=== PATIENT | male | born 1975 | race Caucasian/White ===

== ENCOUNTER 2018-03-06 14:27 | Inpatient (IN) | payer OTHER ==
[2018-03-06 14:58] VITALS: BMI 26.4
--- NOTE | 2018-03-06 16:30 | HP ---
COWS - Scale Resting Pulse: 0= [place] 80 or Below Sweatin= Chills/Flushing Restless Observation: 1= Difficult to Sit Still Pupil Size: 0= Normal to Room Light Bone or Joint Aches: 0= None Runny Nose/ Eye Tearin= Runny Nose/Eyes GI Upset > 30mins: 0= None Tremor Observation: 2= Slight Tremor Visible Yawning Observation: 1= 1-2x During Session Anxiety or Irritability: 2=Irritable/Anxious Goose Flesh Skin: 3=Piloerection COWS Score: 12 Admission ROS S - HPI Chief Complaint: "I need help." Patient is here to Detox from Heroin. Allergies/Adverse Reactions: Allergies Allergy/AdvReac Type Severity Reaction Status Date / Time No Known Drug Allergies Allergy Verified 03/06/18 15:20 History of Present Illness: Patient is a 42 YO male here to Detox from Heroin. This is patient's first Detox admission at [facility]. Patient had a Detox admission in 2017 at another location in [facility] (patient unable to recall name or exact location of Detox facility). Longest period of non-drug use: approx. 2 years (patient unable to recall approx. start time - end time). NOTE: PATIENT REPORTS HISTORY OF DVT TO LEFT LEG WITH PULMONARY EMBOLISM IN 2007 (TREATED IN ER AT TIME). PATIENT HAD A SECOND DVT IN LEFT LEG IN 2008 ( ALSO TREATED IN ER, FOLLOWED BY 3 MONTHS OF COUMADIN, 5 MG DAILY (GRADUALLY TAPERED DOWN). IN 2009, MEDICAL PROVIDER PLACED TWO FILTERS IN LEFT LEG (NO PO MEDICATION PRESCRIBED FOR FOLLOW-UP). THREE DAYS AGO, PATIENT WENT TO [facility] ([place], [place] FOR TREATMENT OF SUBSTANCE USE. HOWEVER, MEDICAL PROVIDER AT [facility] DIAGNOSED ANOTHER DVT IN LEFT AND DISCHARGED PATIENT WITH PRESCRIPTION FOR COUMADIN. 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 PATIENT ALSO UNABLE TO RECALL NAME OF HIS PHARMACY. THUS, DOSE OF COUMADIN UNABLE TO BE VERIFIED THAT WAY. PATIENT DENIES CHEST PAIN, SOB , AND DIZZINESS. WILL START PATIENT WITH COUMADIN AT 5 MG PO DAILY @ 0600. DOPPLER STUDIES TO BILATERAL LOWER LEGS TO BE DONE TOMORROW AM. BASELINE PT/INR ORDERED FOR TOMORROW AM. SUBSEQUENT PT/INR'S TO BE DETERMINED WHEN THOSE RESULTS ARE AVAILABLE. Exam Limitations: No Limitations - Ebola screening Have you traveled outside of the country in the last 21 days: No Have you had contact with anyone from an Ebola affected area: No Have you been sick,other than usual withdrawal symptoms: No Do you have a fever: No - Review of Systems Constitutional: Chills, Diaphoresis, Fever, Loss of Appetite, Malaise, Night Sweats, Changes in sleep, Unintentional Wgt. Loss (Lost approx. 35 lbs. over last 3 months.) EENT: reports: Hearing Loss (Left Ear.) Respiratory: reports: No Symptoms reported Cardiac: reports: No Symptoms Reported GI: reports: No Symptoms Reported : reports: Frequency, Urgency Musculoskeletal: reports: No Symptoms Reported Integumentary: reports: Other (Two small wounds noted on Left Forearm. No bleeding or unusual discharge noted at either site. Patiernt reports that both sites, feel itchy, but he denies pain at either site. Patient uncertain how wounds occurred.) Neuro: reports: Tremors Endocrine: reports: No Symptoms Reported Hematology: reports: Blood Clots (History of DVT in Left leg (X 2) w/ Pulmonary embolism: 2007, 2008. Filter placed in Left Leg in 2007.) Psychiatric: reports: Judgement Intact, Mood/Affect Appropiate, Anxious, Depressed, Disorientated (To Current Day / Date.) Other Systems: Reviewed and Negative Patient History - Patient Medical History Hx Anemia: No Hx Asthma: Yes (Uses MDI PRN.) Hx Chronic Obstructive Pulmonary Disease (COPD): No Hx Cancer: No Hx Cardiac Disorders: No Hx Congestive Heart Failure: No Hx Hypertension: No Hx Hypercholesterolemia: No Hx Pacemaker: No HX Cerebrovascular Accident: No Hx Seizures: No Hx Dementia: No Hx Diabetes: No Hx Gastrointestinal Disorders: No Hx Liver Disease: No Hx Genitourinary Disorders: No Hx Sexually Transmitted Disorders: No Hx Renal Disease (ESRD): No Hx Thyroid Disease: No Hx Human Immunodeficiency Virus (HIV): Yes (Diagnosed 2004, No medication.) Hx Hepatitis C: Yes (Diagnosed 2004., No treatment yet.) Hx Depression: Yes (Took meds. in past, none recently, unable to recall names.) Hx Suicide Attempt: No (PATIENT DENIES CURRENT SI / HI.) Hx Bipolar Disorder: Yes (Took meds. in past, none recently, unable to recall names.) Hx Schizophrenia: No Other Medical History: DVT (X 2; 2008, 2008), PULMONARY EMBOLISM (2008). - Patient Surgical History Past Surgical History: Yes Hx Neurologic Surgery: No Hx Cataract Extraction: No Hx Cardiac Surgery: No Hx Lung Surgery: No Hx Breast Surgery: No Hx Breast Biopsy: No Hx Abdominal Surgery: No Hx Appendectomy: No Hx Cholecystectomy: No Hx Genitourinary Surgery: No Hx Section: No Hx Orthopedic Surgery: No Other Surgical History: HX of DVT with filter placement in left groin Area in 2009. Anesthesia Reaction: No - PPD History Previous Implant?: No Documented Results: Negative w/o proof Implanted On Prior R Admission?: No PPD to be Administered?: Yes - Reproductive History Patient is a Female of Child Bearing Age (11 -55 yrs old): No (PATIENT IS MALE.) - Smoking Cessation Smoking history: Current every day smoker Have you smoked in the past 12 months: Yes Aproximately how many cigarettes per day: 12 Cigars Per Day: 0 Hx Chewing Tobacco Use: No Initiated information on smoking cessation: Yes 'Breaking Loose' booklet given: 03/06/18 (GIVEN TO PATIENT.) - Substance & Tx. History Hx Alcohol Use: No Hx Substance Use: Yes Substance Use Type: Cocaine, Heroin Hx Substance Use Treatment: Yes (Detox admission in 2017 ([facility] to recall name of location; Not Completed)) - Substances Abused Heroin Route: Injection Frequency: Daily Amount used: 10bags Age of first use: 29 Date of Last Use: 03/06/18 Crack Route: Smoking Frequency: 1-3 times last 30 days Amount used: 1 Age of first use: 42 Date of Last Use: 03/03/18 Family Disease History - Family Disease History Family History: Denies Admission Physical Exam BHS - Vital Signs Vital Signs: Vital Signs - 24 hr 03/06/18 14:48 Temperature 98.1 F Pulse Rate 77 Respiratory 20 Rate Blood Pressure 103/60 - Physical General Appearance: Yes: No Apparent Distress, Nourished, Appropriately Dressed , Tremorous, Anxious HEENTM: Yes: Hearing grossly Normal, Normocephalic, Normal Voice, FANTASMA, Pharynx Normal Respiratory: Yes: Chest Non-Tender, Lungs Clear, No Respiratory Distress, No Accessory Muscle Use Neck: Yes: No masses,lesions,Nodules, Supple, Trachea in good position Breast: Yes: Breast Exam Deferred Cardiology: Yes: Regular Rhythm, Regular Rate, S1, S2 Abdominal: Yes: Normal Bowel Sounds, Non Tender, Flat, Soft Genitourinary: Yes: Frequency, Uregency Back: Yes: Normal Inspection Musculoskeletal: Yes: full range of Motion, Gait Steady Extremities: Yes: Normal Capillary Refill, Normal Range of Motion, Non-Tender, Tremors Neurological: Yes: Alert, Normal Mood/Affect, Normal Response, Disoriented (To Current Day / Date.) Integumentary: Yes: Normal Color, Dry, Warm, Track Ward (Noted on bilateral forearms in bilateral lower legs. Bruising noted in bilateral lower legs, slightly below knees. No bleeding or unusuasl discharge noted at affected sites. ), Other (Two small wounds noted on Left Forearm. No bleeding or unusual discharge noted at either site. Patiernt reports that both sites, feel itchy, but he denies pain at either site. Patient uncertain how wounds occurred.) Lymphatic: Yes: Within Normal Limits - Diagnostic (1) Opioid dependence with withdrawal Current Visit: Yes Status: Acute (2) Cocaine dependence, uncomplicated Current Visit: Yes Status: Acute (3) Nicotine dependence Current Visit: Yes Status: Chronic Qualifiers: Nicotine product type: cigarettes Substance use status: uncomplicated Qualified Code(s): F17.210 - Nicotine dependence, cigarettes, uncomplicated (4) History of DVT (deep vein thrombosis) Current Visit: Yes Status: Chronic Comment: X 2 (2007, 2008). (5) History of depression Current Visit: Yes Status: Suspected (6) History of bipolar disorder Current Visit: Yes Status: Suspected (7) Asthma Current Visit: Yes Status: Chronic Qualifiers: Asthma severity: mild Asthma persistence: intermittent Asthma complication type: uncomplicated Qualified Code(s): J45.20 - Mild intermittent asthma, uncomplicated (8) Hepatitis C Current Visit: Yes Status: Acute Qualifiers: Viral hepatitis chronicity: chronic Hepatic coma status: without hepatic coma Qualified Code(s): B18.2 - Chronic viral hepatitis C (9) HIV (human immunodeficiency virus infection) Current Visit: Yes Status: Chronic (10) History of embolic filter insertion Current Visit: Yes Status: Chronic Comment: 2009. Cleared for Admission [facility] - Detox or Rehab [facility] Level of Care: Medically Managed Detox Regimen/Protocol: Methadone [facility] Breath Alcohol Content Breath Alcohol Content: 0 Urine Drug Screen - Results Drug Screen Negative: No Urine Drug Screen Results: SARA-Cocaine, OPI-Opiates
[2018-03-06] MEDS ORDERED: MENTHOL/PHENOL 1 EACH UD MM PRN (17:32)
[2018-03-06] MEDS ORDERED: MAGNESIUM CITRATE 300 ML BOTTLE PO PRN (17:32)
[2018-03-06] MEDS ORDERED: IBUPROFEN 400 MG TABLET (FP) PO PRN (17:32)
[2018-03-06] MEDS ORDERED: ACETAMINOPHEN 325 MG TABLET (FP) PO PRN (17:32)
[2018-03-06] MEDS ORDERED: MAG HYDROX/AL HYDROX/SIMETH 30 ML UNIT-DOSE CUP PO PRN (17:32)
[2018-03-06] MEDS ORDERED: LOPERAMIDE HCL 2 MG CAPSULE PO PRN (17:32)
[2018-03-06] MEDS ORDERED: MAGNESIUM HYDROX 2400MG/30ML ORAL SUSPENSION 30 ML CUP PO PRN (17:32)
[2018-03-06] MEDS ORDERED: P-EPHED 60MG/TRIPROLIDI 2.5MG TABLET PO PRN (17:32)
[2018-03-06] MEDS ORDERED: guaiFENesin/D-METHORPHAN HB 10 ML UNIT-DOSE CUPS PO PRN (17:32)
[2018-03-06] MEDS ORDERED: ALBUTEROL SO4 8 GM HFA INHALER IH PRN (17:35)
[2018-03-06] MEDS ORDERED: METHADONE HCL 10 MG TABLET (FOR DETOX USE ONLY) PO ONE ×2 (18:15→23:00)
[2018-03-06] MEDS: diazePAM 5 MG TABLET PO PRN (19:37)
[2018-03-06] MEDS: WARFARIN NA 5 MG TABLET (UD) PO SCH (19:37)
[2018-03-06] MEDS: NICOTINE 21 MG/24 HOURS TOPICAL PATCH TD SCH (19:37)
[2018-03-06] MEDS: BACITRACIN 0.9 GM PACKET TP SCH (22:20)
[2018-03-06] MEDS: THIAMINE HCL 100 MG TABLET (FP) PO SCH (22:20)
[2018-03-07 00:02] LABS: URINE APPEARANCE SLCLOUDY; URINE BILIRUBIN NEGATIVE (<2.0 mg/dL); URINE COLOR YELLOW; URINE GLUCOSE (UA) NEGATIVE (NEGATIVE); URINE KETONE NEGATIVE (NEGATIVE); URINE LEUK ESTERASE NEGATIVE (NEGATIVE); URINE NITRITE NEGATIVE (NEGATIVE); URINE PROTEIN NEGATIVE (NEGATIVE); URINE UROBILINOGEN NEGATIVE mg/dL (0.2-1.0)
--- NOTE | 2018-03-07 08:55 | CONSULT ---
[facility] Psychiatric Consult - Data Date of interview: 03/07/18 Admission source: [facility] Identifying data: Patient is a 42 year old male, , father of one, unemployed, homeless, and supported by food stamps. This is patient's first psychiatric hospitalization. Patient admitted to for opioid and cocaine dependence. Substance Abuse History: - Smoking Cessation. Smoking history: Current every day smoker. Have you smoked in the past 12 months: Yes. Aproximately how many cigarettes per day: 12. Cigars Per Day: 0. Hx Chewing Tobacco Use: No. Initiated information on smoking cessation: Yes. 'Breaking Loose' booklet given : 03/06/18 (GIVEN TO PATIENT.). - Substance & Tx. History. Hx Alcohol Use: No. Hx Substance Use: Yes. Substance Use Type: Cocaine, Heroin. Hx Substance Use Treatment: Yes (Detox admission in 2017 ([facility] to recall name of location ; Not Completed)). - Substances Abused. Heroin. Route: Injection. Frequency: Daily. Amount used: 10bags. Age of first use: 29. Date of Last Use : 03/06/18. Crack. Route: Smoking. Frequency: 1-3 times last 30 days. Amount used: 1. Age of first use: 42. Date of Last Use: 03/03/18 Medical History: Asthma, Hep C, HIV, DVT (X 2; 2007, 2008), PULMONARY EMBOLISM ( 2007) Psychiatric History: Pt. denies h/o psychiatric hospitalization and suicide attempt. Outpatient psychiatric services was provided last year in [place]. Pt. unable to recall medications he was prescribed. Pt. unable to provide a cohesive psychiatric history. Physical/Sexual Abuse/Trauma History: denies. Mental Status Exam - Mental Status Exam Alert and Oriented to: Time, Place, Person Cognitive Function: Good Patient Appearance: Well Groomed Mood: Withdrawn Affect: Mood Congruent Patient Behavior: Fatigued, Guarded Speech Pattern: Appropriate Voice Loudness: Moderately Soft/Quiet Thought Process: Goal Oriented Hallucinations: Denies Suicidal Ideation: Denies Homicidal Ideation: Denies Insight/Judgement: Poor Sleep: Fair Appetite: Fair Muscle strength/Tone: Normal Gait/Station: Other (Did not observe patient's gait.) Psychiatric Findings - Problem List ([place] 1, 2,3) (1) Substance induced mood disorder Current Visit: Yes Status: Acute (2) Cocaine dependence, uncomplicated Current Visit: Yes Status: Acute (3) Opioid dependence with withdrawal Current Visit: Yes Status: Acute (4) Nicotine dependence Current Visit: Yes Status: Chronic Qualifiers: Nicotine product type: cigarettes Substance use status: uncomplicated Qualified Code(s): F17.210 - Nicotine dependence, cigarettes, uncomplicated - Initial Treatment Plan Initial Treatment Plan: Psychoeducation provided. Detoxification in progress. Observation.
[2018-03-07] MEDS ORDERED: METHADONE HCL 10 MG TABLET (FOR DETOX USE ONLY) PO ONE (10:00)
[2018-03-07 10:12] LABS: HEMATOCRIT 37.4 % (35.4-49); HEMOGLOBIN 12.1 GM/dL (11.7-16.9); MCH 27.2 pg (25.7-33.7); MCHC 32.4 g/dl (32.0-35.9); MEAN CELL VOLUME 83.9 fl (80-96); MEAN PLT VOLUME 10.7 fl (7.5-11.1); PLATELET COUNT 172 K/MM3 (134-434); RBC 4.45 M/mm3 (4.00-5.60); WHITE BLOOD COUNT 6.9 K/mm3 (4.0-10.0)
[2018-03-07] MEDS: PRENATAL VITAMINS W/ FOLIC ACID TABLET (FP) PO SCH (10:36)
[2018-03-07] MEDS: diazePAM 5 MG TABLET PO PRN ×3 (10:36→22:24)
[2018-03-07] MEDS: BACITRACIN 0.9 GM PACKET TP SCH ×2 (10:36→22:24)
[2018-03-07 10:38] LABS: PROTHROMBIN TIME (PATIENT) 11.3 SEC (9.7-13.0)
[2018-03-07] MEDS: NICOTINE 21 MG/24 HOURS TOPICAL PATCH TD SCH (10:38)
[2018-03-07] MEDS: NICOTINE POLACRILEX 2 MG GUM BC PRN (10:39)
--- NOTE | 2018-03-07 11:56 | EKG ---
Test Reason : Blood Pressure : / mmHG Vent. Rate : 075 BPM Atrial Rate : 075 BPM P-R Int : 140 ms QRS Dur : 076 ms QT Int : 364 ms P-R-T Axes : 069 029 027 degrees QTc Int : 406 ms NORMAL SINUS RHYTHM NORMAL ECG NO PREVIOUS ECGS AVAILABLE Confirmed by PATRICIO STEPHEN MD ([id number]) on 03/07/2018 11:56:13 AM Referred By: Confirmed By:PATRICIO STEPHEN MD
[2018-03-07 12:23] LABS: CHLORIDE 110 mmol/L (98-107); POTASSIUM 4.2 mmol/L (3.5-5.1); SGOT/AST 40 U/L (15-37); SGPT/ALT 58 U/L (12-78); SODIUM 143 mmol/L (136-145)
[2018-03-07 12:32] LABS: ALBUMIN 2.8 g/dl (3.4-5.0); ALK PHOS 95 U/L (45-117); ANION GAP 7 MMOL/L (8-16); BILIRUBIN,TOTAL 0.6 mg/dL (0.2-1.0); BLOOD UREA NITROGEN 16 mg/dL (7-18); CO2 26 mmol/L (21-32); CREATININE 0.6 mg/dL (0.7-1.3); GLUCOSE,RANDOM 84 mg/dL (74-106)
--- NOTE | 2018-03-07 16:32 | PN ---
BHS COWS - Scale Resting Pulse: 0= [place] 80 or Below Sweatin= Chills/Flushing Restless Observation: 1= Difficult to Sit Still Pupil Size: 0= Normal to Room Light Bone or Joint Aches: 0= None Runny Nose/ Eye Tearin= Nasal Congestion GI Upset > 30mins: 2= Nausea/Diarrhea Tremor Observation of Outstretched Hands: 2= Slight Tremor Visible Yawning Observation: 1= 1-2x During Session Anxiety or Irritability: 2=Irritable/Anxious Goose Flesh Skin: 3=Piloerection COWS Score: 13 BHS Progress Note (SOAP) Subjective: Tremors, Nasal Congestion, Tremors, Poor Appetite, Fatigue, Nausea. Objective: PATIENT A & O X 2 (UNCERTAIN ABOUT CURRENT DAY / DATE). PATIENT OBSERVED AMBULATING ON UNIT. NO ACUTE DISTRESS. PATIENT REPORTS DISCOMFORT IN LEFT LOWER LEG ONLY WHEN STANDING WITH FULL WEIGHT ON IT. 03/07/18 16:31 Vital Signs Temperature 98.2 F 03/07/18 13:57 Pulse Rate 80 03/07/18 13:57 Respiratory Rate 18 03/07/18 13:57 Blood Pressure 110/65 03/07/18 13:57 O2 Sat by Pulse Oximetry (%) Laboratory Tests 03/06/18 03/07/18 03/07/18 Unknown 07:40 07:40 WBC 6.9 RBC 4.45 Hgb 12.1 Hct 37.4 MCV 83.9 MCH 27.2 MCHC 32.4 RDW 14.0 Plt Count 172 MPV 10.7 PT with INR INR Sodium 143 Potassium 4.2 Chloride 110 H Carbon Dioxide 26 Anion Gap 7 L BUN 16 Creatinine 0.6 L Creat Clearance w eGFR > 60 Random Glucose 84 Calcium 8.0 L Total Bilirubin 0.6 AST 40 H ALT 58 Alkaline Phosphatase 95 Total Protein 7.0 Albumin 2.8 L Urine Color Yellow Urine Appearance Slcloudy Urine pH 5.0 Ur Specific [place] 1.026 Urine Protein Negative Urine Glucose (UA) Negative Urine Ketones Negative Urine Blood Negative Urine Nitrite Negative Urine Bilirubin Negative Urine Urobilinogen Negative Ur Leukocyte Esterase Negative RPR Titer 03/07/18 03/07/18 07:40 07:40 WBC RBC Hgb Hct MCV MCH MCHC RDW Plt Count MPV PT with INR 11.30 INR 1.00 Sodium Potassium Chloride Carbon Dioxide Anion Gap BUN Creatinine Creat Clearance w eGFR Random Glucose Calcium Total Bilirubin AST ALT Alkaline Phosphatase Total Protein Albumin Urine Color Urine Appearance Urine pH Ur Specific [place] Urine Protein Urine Glucose (UA) Urine Ketones Urine Blood Urine Nitrite Urine Bilirubin Urine Urobilinogen Ur Leukocyte Esterase RPR Titer Nonreactive LABS NOTED. RESULTS OF DUPLEX ULSTRASOUND OF BILATERAL LOWER EXTREMITIES NOTED. PATIENT PREVIOUSLY DIAGNOSED WITH DVT OF LEFT LOWER EXTREMITY APPROX. 4 DAYS AGO AT [facility] ([place], [place] PATIENT REPORTS THAT HE WAS PRESCRIBED COUMADIN (UNCERTAIN ABOUT DOSE). 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 03/07/18 16:34 Assessment: 03/07/18 16:31 WITHDRAWAL SYMPTOMS. Plan: CONTINUE DETOX. ENSURE FOR CALORIC SUPPLEMENTATION. REPEAT PT/INR TOMORROW AM TO SEE IF ANY EFFECT OF COUMADIN. SUBSEQUENT DOSAGE MODIFICATION OF COUMADIN TO BE DETERMINED AFTER THOSE RESULTS ARE AVAILABLE.
[2018-03-07] MEDS: WARFARIN NA 5 MG TABLET (UD) PO SCH (17:40)
[2018-03-07] MEDS: THIAMINE HCL 100 MG TABLET (FP) PO SCH (22:24)
[2018-03-08] MEDS ORDERED: METHADONE HCL 5 MG TABLET (FOR DETOX USE ONLY) PO ONE (10:00)
[2018-03-08] MEDS: PRENATAL VITAMINS W/ FOLIC ACID TABLET (FP) PO SCH (10:24)
[2018-03-08] MEDS: diazePAM 5 MG TABLET PO PRN ×3 (10:24→22:21)
[2018-03-08] MEDS: BACITRACIN 0.9 GM PACKET TP SCH ×2 (10:24→22:20)
[2018-03-08] MEDS: NICOTINE 21 MG/24 HOURS TOPICAL PATCH TD SCH (10:27)
[2018-03-08 11:21] LABS: INR 0.98 (0.83-1.09); PROTHROMBIN TIME (PATIENT) 11.1 SEC (9.7-13.0)
[2018-03-08] MEDS: WARFARIN NA 5 MG TABLET (UD) PO SCH (17:39)
[2018-03-08] MEDS: THIAMINE HCL 100 MG TABLET (FP) PO SCH (22:21)
[2018-03-09] MEDS ORDERED: METHADONE HCL 5 MG TABLET (FOR DETOX USE ONLY) PO ONE (10:00)
[2018-03-09] MEDS: BACITRACIN 0.9 GM PACKET TP SCH ×2 (10:07→22:23)
[2018-03-09] MEDS: diazePAM 5 MG TABLET PO PRN (10:07)
[2018-03-09] MEDS: PRENATAL VITAMINS W/ FOLIC ACID TABLET (FP) PO SCH (10:07)
[2018-03-09] MEDS: NICOTINE 21 MG/24 HOURS TOPICAL PATCH TD SCH (10:07)
[2018-03-09] MEDS: WARFARIN NA 5 MG TABLET (UD) PO SCH (17:33)
[2018-03-09] MEDS: hydrOXYzine PAMOATE 25 MG CAPSULE (FP) PO PRN ×2 (17:36→22:23)
--- NOTE | 2018-03-09 17:38 | PN ---
BHS COWS - Scale Resting Pulse: 1= [place] 81-100 Sweatin=Flushed/Facial Moisture Restless Observation: 1= Difficult to Sit Still Pupil Size: 1= Pupils >than Normal Bone or Joint Aches: 2= Severe Diffuse Aches Runny Nose/ Eye Tearin= Runny Nose/Eyes GI Upset > 30mins: 1= Stomach Cramp Tremor Observation of Outstretched Hands: 1= Tremor [place], Not Seen Yawning Observation: 1= 1-2x During Session Anxiety or Irritability: 2=Irritable/Anxious Goose Flesh Skin: 3=Piloerection COWS Score: 17 BHS Progress Note (SOAP) Subjective: pt states he is not feeling good- that he feels like he is in withdrawal Vital Signs - 24 hr 03/08/18 03/09/18 03/09/18 21:05 00:30 03:30 Temperature 97 F L Pulse Rate 81 Respiratory 18 18 18 Rate Blood Pressure 121/60 03/09/18 03/09/18 03/09/18 06:20 06:30 11:14 Temperature 97.8 F 97.6 F Pulse Rate 68 83 Respiratory 18 18 20 Rate Blood Pressure 111/69 112/72 03/09/18 14:45 Temperature 97.4 F L Pulse Rate 83 Respiratory 18 Rate Blood Pressure 103/65 Laboratory Tests 03/06/18 03/07/18 03/07/18 Unknown 07:40 07:40 WBC 6.9 RBC 4.45 Hgb 12.1 Hct 37.4 MCV 83.9 MCH 27.2 MCHC 32.4 RDW 14.0 Plt Count 172 MPV 10.7 PT with INR INR Sodium 143 Potassium 4.2 Chloride 110 H Carbon Dioxide 26 Anion Gap 7 L BUN 16 Creatinine 0.6 L Creat Clearance w eGFR > 60 Random Glucose 84 Calcium 8.0 L Total Bilirubin 0.6 AST 40 H ALT 58 Alkaline Phosphatase 95 Total Protein 7.0 Albumin 2.8 L Urine Color Yellow Urine Appearance Slcloudy Urine pH 5.0 Ur Specific [place] 1.026 Urine Protein Negative Urine Glucose (UA) Negative Urine Ketones Negative Urine Blood Negative Urine Nitrite Negative Urine Bilirubin Negative Urine Urobilinogen Negative Ur Leukocyte Esterase Negative RPR Titer 03/07/18 03/07/18 03/08/18 07:40 07:40 07:00 WBC RBC Hgb Hct MCV MCH MCHC RDW Plt Count MPV PT with INR 11.30 11.10 INR 1.00 0.98 Sodium Potassium Chloride Carbon Dioxide Anion Gap BUN Creatinine Creat Clearance w eGFR Random Glucose Calcium Total Bilirubin AST ALT Alkaline Phosphatase Total Protein Albumin Urine Color Urine Appearance Urine pH Ur Specific [place] Urine Protein Urine Glucose (UA) Urine Ketones Urine Blood Urine Nitrite Urine Bilirubin Urine Urobilinogen Ur Leukocyte Esterase RPR Titer Nonreactive VS WNL, labs WNL, INR 0.98- Ass/plan: continue detox protocol, d/w pt he can ask the nurse for prn meds
[2018-03-09] MEDS: NICOTINE POLACRILEX 2 MG GUM BC PRN (17:46)
[2018-03-09] MEDS: THIAMINE HCL 100 MG TABLET (FP) PO SCH (22:23)
[2018-03-09] MEDS: MELATONIN 5 MG TABLETS PO PRN (22:24)
[2018-03-10] MEDS ORDERED: METHADONE HCL 10 MG TABLET (FOR DETOX USE ONLY) PO ONE (10:00)
[2018-03-10] MEDS: PRENATAL VITAMINS W/ FOLIC ACID TABLET (FP) PO SCH (10:19)
[2018-03-10] MEDS: BACITRACIN 0.9 GM PACKET TP SCH ×2 (10:19→22:13)
[2018-03-10] MEDS: NICOTINE 21 MG/24 HOURS TOPICAL PATCH TD SCH (10:21)
--- NOTE | 2018-03-10 11:16 | PN ---
BHS Progress Note (SOAP) Subjective: pt states getting better over the last few days- but still feels like he has little energy O: Vital Signs - 24 hr 03/09/18 03/09/18 03/09/18 14:45 19:04 22:34 Temperature 97.4 F L 98.6 F 98.9 F Pulse Rate 83 76 91 H Respiratory 18 18 18 Rate Blood Pressure 103/65 100/52 116/67 03/10/18 03/10/18 06:02 11:06 Temperature 97.5 F L 96.8 F L Pulse Rate 86 77 Respiratory 18 18 Rate Blood Pressure 111/74 106/68 Laboratory Tests 03/06/18 03/07/18 03/07/18 Unknown 07:40 07:40 WBC 6.9 RBC 4.45 Hgb 12.1 Hct 37.4 MCV 83.9 MCH 27.2 MCHC 32.4 RDW 14.0 Plt Count 172 MPV 10.7 PT with INR INR Sodium 143 Potassium 4.2 Chloride 110 H Carbon Dioxide 26 Anion Gap 7 L BUN 16 Creatinine 0.6 L Creat Clearance w eGFR > 60 Random Glucose 84 Calcium 8.0 L Total Bilirubin 0.6 AST 40 H ALT 58 Alkaline Phosphatase 95 Total Protein 7.0 Albumin 2.8 L Urine Color Yellow Urine Appearance Slcloudy Urine pH 5.0 Ur Specific [place] 1.026 Urine Protein Negative Urine Glucose (UA) Negative Urine Ketones Negative Urine Blood Negative Urine Nitrite Negative Urine Bilirubin Negative Urine Urobilinogen Negative Ur Leukocyte Esterase Negative RPR Titer 03/07/18 03/07/18 03/08/18 07:40 07:40 07:00 WBC RBC Hgb Hct MCV MCH MCHC RDW Plt Count MPV PT with INR 11.30 11.10 INR 1.00 0.98 Sodium Potassium Chloride Carbon Dioxide Anion Gap BUN Creatinine Creat Clearance w eGFR Random Glucose Calcium Total Bilirubin AST ALT Alkaline Phosphatase Total Protein Albumin Urine Color Urine Appearance Urine pH Ur Specific [place] Urine Protein Urine Glucose (UA) Urine Ketones Urine Blood Urine Nitrite Urine Bilirubin Urine Urobilinogen Ur Leukocyte Esterase RPR Titer Nonreactive A/p: continue detox protocol pt on coumadin for h/o DVT- subtherapeutic INR, restarted coumading while here, not noted on "home meds"
[2018-03-10] MEDS: WARFARIN NA 5 MG TABLET (UD) PO SCH (17:40)
[2018-03-10] MEDS: hydrOXYzine PAMOATE 25 MG CAPSULE (FP) PO PRN ×2 (17:40→22:13)
[2018-03-10] MEDS: NICOTINE POLACRILEX 2 MG GUM BC PRN (17:41)
[2018-03-10] MEDS: MELATONIN 5 MG TABLETS PO PRN (22:13)
[2018-03-10] MEDS: THIAMINE HCL 100 MG TABLET (FP) PO SCH (22:13)
[2018-03-11] MEDS ORDERED: METHADONE HCL 5 MG TABLET (FOR DETOX USE ONLY) PO ONE (06:00)
[2018-03-11 09:14] VITALS: BP 110/68; PULSE 90; TEMP 98.5
--- NOTE | 2018-03-11 14:54 | PN ---
BHS Progress Note (SOAP) Subjective: DETOX COMPLETED. ALERT O X 3. NAD. PT REPORTS HIS PMD IS ON [facility](DOES NOT REMEMBER HIS NAME0. Objective: 03/11/18 14:53 Vital Signs 03/11/18 09:12 Temperature 98.5 F Pulse Rate 90 Respiratory 18 Rate Blood Pressure 110/68 Laboratory Tests 03/06/18 03/07/18 03/07/18 Unknown 07:40 07:40 WBC 6.9 RBC 4.45 Hgb 12.1 Hct 37.4 MCV 83.9 MCH 27.2 MCHC 32.4 RDW 14.0 Plt Count 172 MPV 10.7 PT with INR INR Sodium 143 Potassium 4.2 Chloride 110 H Carbon Dioxide 26 Anion Gap 7 L BUN 16 Creatinine 0.6 L Creat Clearance w eGFR > 60 Random Glucose 84 Calcium 8.0 L Total Bilirubin 0.6 AST 40 H ALT 58 Alkaline Phosphatase 95 Total Protein 7.0 Albumin 2.8 L Urine Color Yellow Urine Appearance Slcloudy Urine pH 5.0 Ur Specific [place] 1.026 Urine Protein Negative Urine Glucose (UA) Negative Urine Ketones Negative Urine Blood Negative Urine Nitrite Negative Urine Bilirubin Negative Urine Urobilinogen Negative Ur Leukocyte Esterase Negative RPR Titer 03/07/18 03/07/18 03/08/18 07:40 07:40 07:00 WBC RBC Hgb Hct MCV MCH MCHC RDW Plt Count MPV PT with INR 11.30 11.10 INR 1.00 0.98 Sodium Potassium Chloride Carbon Dioxide Anion Gap BUN Creatinine Creat Clearance w eGFR Random Glucose Calcium Total Bilirubin AST ALT Alkaline Phosphatase Total Protein Albumin Urine Color Urine Appearance Urine pH Ur Specific [place] Urine Protein Urine Glucose (UA) Urine Ketones Urine Blood Urine Nitrite Urine Bilirubin Urine Urobilinogen Ur Leukocyte Esterase RPR Titer Nonreactive Assessment: 03/11/18 14:54 MEDICALLY STABLE Plan: D/C PT TODAY
--- NOTE | 2018-03-11 14:55 | DS ---
[facility] Detox Discharge Summary Admission Date: 03/06/18 Discharge Date: 03/11/18 - History Present History: Cocaine Dependence, Opioid Dependence Additional Comments: DETOX COMPLETED. ALERT O X 3. NAD.PT TO FOLLOW UP WITH HIS PRIMARY CARE LOCATED ON [place], [place] FOR MEDICAL MANAGEMENT OF COMORBID CONDITIONS. Pertinent Past History: PLEASE SEE DX BELOW. - Physical Exam Results Vital Signs: Vital Signs Temperature 98.5 F 03/11/18 09:12 Pulse Rate 90 03/11/18 09:12 Respiratory Rate 03/11/18 09:12 Blood Pressure 110/68 03/11/18 09:12 O2 Sat by Pulse Oximetry (%) Pertinent Admission Physical Exam Findings: WITHDRAWAL SX Laboratory Tests 03/06/18 03/07/18 03/07/18 Unknown 07:40 07:40 WBC 6.9 RBC 4.45 Hgb 12.1 Hct 37.4 MCV 83.9 MCH 27.2 MCHC 32.4 RDW 14.0 Plt Count 172 MPV 10.7 PT with INR INR Sodium 143 Potassium 4.2 Chloride 110 H Carbon Dioxide 26 Anion Gap 7 L BUN 16 Creatinine 0.6 L Creat Clearance w eGFR > 60 Random Glucose 84 Calcium 8.0 L Total Bilirubin 0.6 AST 40 H ALT 58 Alkaline Phosphatase 95 Total Protein 7.0 Albumin 2.8 L Urine Color Yellow Urine Appearance Slcloudy Urine pH 5.0 Ur Specific [place] 1.026 Urine Protein Negative Urine Glucose (UA) Negative Urine Ketones Negative Urine Blood Negative Urine Nitrite Negative Urine Bilirubin Negative Urine Urobilinogen Negative Ur Leukocyte Esterase Negative RPR Titer 03/07/18 03/07/18 03/08/18 07:40 07:40 07:00 WBC RBC Hgb Hct MCV MCH MCHC RDW Plt Count MPV PT with INR 11.30 11.10 INR 1.00 0.98 Sodium Potassium Chloride Carbon Dioxide Anion Gap BUN Creatinine Creat Clearance w eGFR Random Glucose Calcium Total Bilirubin AST ALT Alkaline Phosphatase Total Protein Albumin Urine Color Urine Appearance Urine pH Ur Specific [place] Urine Protein Urine Glucose (UA) Urine Ketones Urine Blood Urine Nitrite Urine Bilirubin Urine Urobilinogen Ur Leukocyte Esterase RPR Titer Nonreactive - Treatment Hospital Course: Detox Protocol Followed, Detoxed Safely, Responded well, Discharged Condition Good - Medication Discharge Medications: Ambulatory Orders NK [No Known Home Medication] 03/06/18 - Diagnosis (1) HIV (human immunodeficiency virus infection) Status: Chronic (2) Nicotine dependence Status: Acute Qualifiers: Nicotine product type: cigarettes Substance use status: in withdrawal Qualified Code(s): F17.213 - Nicotine dependence, cigarettes, with withdrawal (3) Cocaine dependence, uncomplicated Status: Acute (4) Hepatitis C Status: Chronic Qualifiers: Viral hepatitis chronicity: chronic Hepatic coma status: without hepatic coma Qualified Code(s): B18.2 - Chronic viral hepatitis C (5) Opioid dependence with withdrawal Status: Acute (6) Asthma Status: Chronic Qualifiers: Asthma severity: unspecified severity Asthma persistence: unspecified Asthma complication type: uncomplicated Qualified Code(s): J45.909 - Unspecified asthma, uncomplicated (7) History of DVT (deep vein thrombosis) Status: Chronic (8) History of embolic filter insertion Status: Chronic - AMA Did Patient Leave Against Medical Advice: No
== END 2018-03-11 09:18 | disposition home or self-care (01) | DRG 773 ==
LOC: YASAS 14:27 → Y3N 17:42
PROC: HZ2ZZZZ Detoxification Services for Substance Abuse Treatment (ICD-10-PCS; principal; 2018-03-06)
DX: F11.23 Opioid dependence with withdrawal (principal); F14.20 Cocaine dependence, uncomplicated; F17.210 Nicotine dependence, cigarettes, uncomplicated; F31.9 Bipolar disorder, unspecified; F19.24 Other psychoactive substance dependence with psychoactive substance-induced mood disorder; F32.9 Major depressive disorder, single episode, unspecified; Z21 Asymptomatic human immunodeficiency virus [HIV] infection status; B18.2 Chronic viral hepatitis C; J45.909 Unspecified asthma, uncomplicated; Z86.718 Personal history of other venous thrombosis and embolism; Z86.711 Personal history of pulmonary embolism; Z95.828 Presence of other vascular implants and grafts
CPT/HCPCS: 36415; 80053; 81003; 85027; 85610; 86593; 93005; 93010; 93970-TC

== ENCOUNTER 2019-08-22 14:02 | Inpatient (IN) | payer OTHER ==
--- NOTE | 2019-08-22 14:17 | BHS.RME ---
Substance Use & Tx History - Substance Use History Opiates (Heroin) Substance amount: 8 bags Frequency of use: Daily Substance route: Injection (ex: intravenous or skin popping) Date of Last Use: 08/21/19 Cocaine (Crack) Substance amount: $20 Frequency of use: Less than 3 times per week Substance route: Smoking Date of Last Use: 08/21/19 - Last Treatment Treatment type: Substance Use Disorder (CHELO) (2018 detox from heroin here at [facility]) Physical/Psych/Mental Status - Behavior Eye Contact: Normal - Cooperativeness Cooperativeness: Cooperative - Thinking Thought Processes: Tight, Logical, Goal Directed Thought content: Future oriented - Physical Health Problems Is patient presently having any pain?: No Does patient presently have any injuries (include location): No Does patient currently have a fever: No Is patient : No COWS - Scale Resting Pulse: 1= [place] 81-100 Sweatin= Chills/Flushing Restless Observation: 1= Difficult to Sit Still Pupil Size: 1= Pupils >than Normal Bone or Joint Aches: 2= Severe Diffuse Aches Runny Nose/ Eye Tearin= Runny Nose/Eyes GI Upset > 30mins: 1= Stomach Cramp Tremor Observation: 1= Tremor [place], Not Seen Yawning Observation: 1= 1-2x During Session Anxiety or Irritability: 2=Irritable/Anxious Goose Flesh Skin: 0=Smooth Skin COWS Score: 13
[2019-08-22 14:46] VITALS: BMI 25.2
--- NOTE | 2019-08-22 15:17 | HP ---
COWS - Scale Resting Pulse: 1= [place] 81-100 Sweatin= Chills/Flushing Restless Observation: 3= Extraneous Movement Pupil Size: 1= Pupils >than Normal Bone or Joint Aches: 2= Severe Diffuse Aches Runny Nose/ Eye Tearin= Runny Nose/Eyes GI Upset > 30mins: 1= Stomach Cramp Tremor Observation: 1= Tremor [place], Not Seen Yawning Observation: 1= 1-2x During Session Anxiety or Irritability: 2=Irritable/Anxious Goose Flesh Skin: 0=Smooth Skin COWS Score: 15 CIWA Score - Admission Criteria OASAS Guidelines: Admission for Medically Managed Detox: Requires at least one of the followin. CIWA greater than 12 2. Seizures within the past 24 hours 3. Delirium tremens within the past 24 hours 4. Hallucinations within the past 24 hours 5. Acute intervention needed for co occurring medical disorder 6. Acute intervention needed for co occurring psychiatric disorder 7. Severe withdrawal that cannot be handled at a lower level of care (continued vomiting, continued diarrhea, abnormal vital signs) requiring intravenous medication and/or fluids 8. Admitting History and Physical - Admission Chief Complaint: "I want to stop using and get my life together. YANNICK BLOUNT" History of Present Illness: 44 year old male with history of opioid dependence with withdrawals. He is using 8 bags of heroin daily last used yesterday. He's had near overdoses but does not carry a Narcan kit and he is using intravenously. Las admission here was in 2018 where he completed detox but relapsed almost immediately. He is also using crack $20 less than 2x/wk. PMH: DVT in past 2007 and 2008 and history of PE 2007, HCV disease that is not treated. HIV + and not taking medications. He stopped taking meds 3 month ago due to his drug use. Psych: History of Depression but takes no meds at this time He is homeless and at high risk for detox as he is still actively using intravenous opiates. History Source: Patient Limitations to Obtaining History: No Limitations - Past Medical History Hepatobiliary: Yes: Hepatitis C, Other (untreated) Infectious Disease: Yes: HIV, Other (not taking any HAART) - Past Surgical History Past Surgical History: Yes: None - Smoking History Smoking history: Current every day smoker Have you smoked in the past 12 months: Yes Aproximately how many cigarettes per day: 12 - Alcohol/Substance Use Hx Alcohol Use: No History of Substance Use: reports: Heroin Date of Last Use: 08/21/19 - Social History Usual Living Arrangement: Yes: Alone Do you think of yourself as: Straight/Heterosexual ADL: Independent 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 Loss EENT: reports: No Symptoms Reported Respiratory: reports: No Symptoms reported Cardiac: reports: No Symptoms Reported GI: reports: No Symptoms Reported : reports: No Symptoms Reported Musculoskeletal: reports: No Symptoms Reported Integumentary: reports: No Symptoms Reported Neuro: reports: No Symptoms reported Endocrine: reports: No Symptoms Reported Hematology: reports: No Symptoms Reported Psychiatric: reports: Judgement Intact, Mood/Affect Appropiate, Orientated x3, Agitated, Anxious Other Systems: Reviewed and Negative Patient History - Patient Medical History Hx Anemia: No Hx Asthma: Yes (NO MEDS) Hx Chronic Obstructive Pulmonary Disease (COPD): No Hx Cancer: No Hx Cardiac Disorders: No Hx Congestive Heart Failure: No Hx Hypertension: No Hx Hypercholesterolemia: No Hx Pacemaker: No HX Cerebrovascular Accident: No Hx Seizures: No Hx Dementia: No Hx Diabetes: No Hx Gastrointestinal Disorders: No Hx Liver Disease: No Hx Genitourinary Disorders: No Hx Sexually Transmitted Disorders: Yes (HIV POS) Hx Renal Disease (ESRD): No Hx Thyroid Disease: No Hx Human Immunodeficiency Virus (HIV): Yes (Diagnosed 2004, No medication.) Hx Hepatitis C: Yes (Diagnosed 2004., No treatment yet.) Hx Depression: Yes Hx Suicide Attempt: No Hx Bipolar Disorder: Yes (Took meds. in past, none recently, unable to recall names.) Hx Schizophrenia: No - Patient Surgical History Past Surgical History: Yes Hx Neurologic Surgery: No Hx Cataract Extraction: No Hx Cardiac Surgery: No Hx Lung Surgery: No Hx Breast Surgery: No Hx Breast Biopsy: No Hx Abdominal Surgery: No Hx Appendectomy: No Hx Cholecystectomy: No Hx Genitourinary Surgery: No Hx Section: No Hx Orthopedic Surgery: No Other Surgical History: HX of DVT with filter placement in left groin Area in 2009. Anesthesia Reaction: No - PPD History Previous Implant?: Yes Documented Results: Negative w/o proof Implanted On Prior [facility] Admission?: No Date: 03/08/18 - Smoking Cessation Smoking history: Current every day smoker Have you smoked in the past 12 months: Yes Aproximately how many cigarettes per day: 12 Cigars Per Day: 0 Hx Chewing Tobacco Use: No Initiated information on smoking cessation: Yes 'Breaking Loose' booklet given: 08/22/19 - Substances abused Heroin Substance route: Injection Frequency: Daily Amount used: 6bags Age of first use: 20 Date of last use: 08/21/19 Crack Substance route: Smoking Frequency: 1-2 times per week Amount used: $20 Age of first use: 38 Date of last use: 08/21/19 Admission Physical Exam S - Vital Signs Vital Signs: Vital Signs - 24 hr 08/22/19 14:43 Temperature 98.1 F Pulse Rate 73 Respiratory 18 Rate Blood Pressure 120/66 - Physical General Appearance: Yes: Moderate Distress, Tremorous, Irritable, Sweating, Anxious HEENTM: Yes: EOMI, Hearing grossly Normal, Normal ENT Inspection, Normocephalic , Normal Voice, FANTASMA, Pharynx Normal, Tm's normal Respiratory: Yes: Chest Non-Tender, Lungs Clear, Normal Breath Sounds, No Respiratory Distress, No Accessory Muscle Use Neck: Yes: No masses,lesions,Nodules, Supple, Trachea in good position Breast: Yes: Within Normal Limits Cardiology: Yes: Regular Rhythm, Regular Rate, S1, S2 Abdominal: Yes: Non Tender, Flat, Soft, Increased Bowel Sounds Genitourinary: Yes: Within Normal Limits Back: Yes: Normal Inspection Musculoskeletal: Yes: full range of Motion, Gait Steady, Pelvis Stable Extremities: Yes: Normal Capillary Refill, Normal Inspection, Normal Range of Motion, Non-Tender Neurological: Yes: 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 II-XII NML intact, Fully Oriented, Alert, Motor Strength 5/5, Normal Mood/Affect, Normal Response Integumentary: Yes: Normal Color, Warm Lymphatic: Yes: Within Normal Limits - Diagnostic (1) Cocaine dependence, uncomplicated Current Visit: Yes Status: Acute (2) Deep vein thrombosis (DVT) of left lower extremity Current Visit: Yes Status: Acute Qualifiers: Affected thrombotic vein of extremity: femoral Chronicity: acute Qualified Code(s): I82.412 - Acute embolism and thrombosis of left femoral vein (3) Nicotine dependence Current Visit: Yes Status: Acute Qualifiers: Nicotine product type: cigarettes Substance use status: in withdrawal Qualified Code(s): F17.213 - Nicotine dependence, cigarettes, with withdrawal (4) Opioid dependence with withdrawal Current Visit: Yes Status: Acute (5) Substance induced mood disorder Current Visit: Yes Status: Acute (6) HIV (human immunodeficiency virus infection) Current Visit: Yes Status: Chronic (7) Hepatitis C Current Visit: Yes Status: Chronic Qualifiers: Viral hepatitis chronicity: chronic Hepatic coma status: without hepatic coma Qualified Code(s): B18.2 - Chronic viral hepatitis C (8) History of depression Current Visit: Yes Status: Suspected Screened but not Admitted - Documentation of Visit Screened but not Admitted: No Breathalyzer - Breathalyzer Breathalyzer: 0 Urine Drug Screen - Test Device Lot number: [id number] Expiration date: 06/02/21 - Control Is test valid?: Yes - Results Drug screen NEGATIVE: No Urine drug screen results: SARA-Cocaine, MOP-Opiates Inpatient Rehab Admission - Rehab Decision to Admit Inpatient rehab admission?: No
[2019-08-22] MEDS ORDERED: MAGNESIUM HYDROX 2400MG/30ML ORAL SUSPENSION 30 ML CUP PO PRN (15:20)
[2019-08-22] MEDS ORDERED: METHOCARBAMOL 500 MG TABLET PO PRN (15:20)
[2019-08-22] MEDS ORDERED: ACETAMINOPHEN 325 MG TABLET (FP) PO PRN ×2 (15:20)
[2019-08-22] MEDS ORDERED: hydrOXYzine PAMOATE 25 MG CAPSULE (FP) PO PRN (15:20)
[2019-08-22] MEDS ORDERED: MAG HYDROX/AL HYDROX/SIMETH 30 ML UNIT-DOSE CUP PO PRN (15:20)
[2019-08-22] MEDS ORDERED: MAGNESIUM CITRATE 300 ML BOTTLE PO PRN (15:20)
[2019-08-22] MEDS ORDERED: cloNIDine HCL 0.1 MG TABLET PO PRN (15:20)
[2019-08-22] MEDS ORDERED: MENTHOL/PHENOL 1 EACH UD MM PRN (15:20)
[2019-08-22] MEDS ORDERED: IBUPROFEN 400 MG TABLET (FP) PO PRN (15:20)
[2019-08-22] MEDS ORDERED: METHADONE HCL 10 MG TABLET (FOR DETOX USE ONLY) PO ONE (15:30)
[2019-08-22 16:52] LABS: HEMATOCRIT 37.6 % (35.4-49); HEMOGLOBIN 12.4 GM/dL (11.7-16.9); MCH 27.9 pg (25.7-33.7); MCHC 33.1 g/dl (32.0-35.9); MEAN CELL VOLUME 84.2 fl (80-96); MEAN PLT VOLUME 11.2 fl (7.5-11.1); RBC 4.46 M/mm3 (4.00-5.60); RDW 14.4 % (11.9-15.9); WHITE BLOOD COUNT 6.1 K/mm3 (4.0-10.0)
[2019-08-22 17:05] LABS: ALBUMIN 3.4 g/dl (3.4-5.0); BILIRUBIN,TOTAL 0.6 mg/dL (0.2-1); BLOOD UREA NITROGEN 18.1 mg/dL (7-18); CALCIUM 8.6 mg/dL (8.5-10.1); CREATININE 0.9 mg/dL (0.55-1.3); POTASSIUM 3.7 mmol/L (3.5-5.1); TOT PROT 8.2 g/dl (6.4-8.2)
[2019-08-22 17:43] LABS: PLATELET COUNT 208 K/MM3 (134-434)
[2019-08-22] MEDS: THIAMINE HCL 100 MG TABLET (FP) PO SCH (22:13)
[2019-08-22] MEDS: MELATONIN 5 MG TABLETS PO PRN (22:14)
[2019-08-23] MEDS ORDERED: METHADONE HCL 5 MG TABLET (FOR DETOX USE ONLY) ONE (09:13)
[2019-08-23] MEDS ORDERED: METHADONE HCL 10 MG TABLET (FOR DETOX USE ONLY) ONE (09:13)
[2019-08-23] MEDS ORDERED: METHADONE (DETOX) 20 MG, METHADONE (DETOX) 5 MG PO ONE (10:00)
[2019-08-23] MEDS: PRENATAL VITAMINS W/ FOLIC ACID TABLET (FP) PO SCH (10:34)
[2019-08-23] MEDS: NICOTINE 14 MG/24 HOURS TOPICAL PATCH TD SCH (10:35)
--- NOTE | 2019-08-23 10:42 | PN ---
BHS COWS - Scale Resting Pulse: 0= DC 80 or Below Sweatin= Beads of Sweat on Face Restless Observation: 1= Difficult to Sit Still Pupil Size: 0= Normal to Room Light Bone or Joint Aches: 2= Severe Diffuse Aches Runny Nose/ Eye Tearin= None GI Upset > 30mins: 1= Stomach Cramp Tremor Observation of Outstretched Hands: 0= None Yawning Observation: 1= 1-2x During Session Anxiety or Irritability: 2=Irritable/Anxious Goose Flesh Skin: 0=Smooth Skin COWS Score: 10 S Progress Note (SOAP) Subjective: c/o stomach cramp, sweats, anxiety, and muscle aches. Objective: Vital Signs 08/23/19 08/23/19 08/23/19 03:30 05:12 06:30 Temperature 97.0 F L Pulse Rate 53 L Respiratory 18 18 18 Rate Blood Pressure 92/55 L 08/23/19 08:38 Temperature 97.3 F L Pulse Rate 61 Respiratory 18 Rate Blood Pressure 96/70 Laboratory Last Values WBC 6.1 K/mm3 (4.0-10.0) 08/22/19 15:00 RBC 4.46 M/mm3 (4.00-5.60) 08/22/19 15:00 Hgb 12.4 GM/dL (11.7-16.9) 08/22/19 15:00 Hct 37.6 % (35.4-49) 08/22/19 15:00 MCV 84.2 fl (80-96) 08/22/19 15:00 MCH 27.9 pg (25.7-33.7) 08/22/19 15:00 MCHC 33.1 g/dl (32.0-35.9) 08/22/19 15:00 RDW 14.4 % (11.9-15.9) 08/22/19 15:00 Plt Count 208 K/MM3 (134-434) D 08/22/19 15:00 MPV 11.2 fl (7.5-11.1) H 08/22/19 15:00 Platelet Comment Giant platelets 08/22/19 15:00 Sodium 139 mmol/L (136-145) 08/22/19 15:00 Potassium 3.7 mmol/L (3.5-5.1) 08/22/19 15:00 Chloride 108 mmol/L (98-107) H 08/22/19 15:00 Carbon Dioxide 29 mmol/L (21-32) 08/22/19 15:00 Anion Gap 3 MMOL/L (8-16) L 08/22/19 15:00 BUN 18.1 mg/dL (7-18) H 08/22/19 15:00 Creatinine 0.9 mg/dL (0.55-1.3) 08/22/19 15:00 Est GFR (CKD-EPI)AfAm 118.30 08/22/19 15:00 Est GFR (CKD-EPI)NonAf 102.07 08/22/19 15:00 Random Glucose 102 mg/dL (74-106) 08/22/19 15:00 Calcium 8.6 mg/dL (8.5-10.1) 08/22/19 15:00 Total Bilirubin 0.6 mg/dL (0.2-1) 08/22/19 15:00 AST 28 U/L (15-37) 08/22/19 15:00 ALT 41 U/L (13-61) 08/22/19 15:00 Alkaline Phosphatase 117 U/L (45-117) 08/22/19 15:00 Total Protein 8.2 g/dl (6.4-8.2) 08/22/19 15:00 Albumin 3.4 g/dl (3.4-5.0) 08/22/19 15:00 RPR Titer Nonreactive (NONREACTIVE) 08/22/19 15:00 Labs noted. Assessment: 08/23/19 10:41 AOX3, in no acute respiratory distress. Full ROM, ambulating in the unit. Withdrawal symptoms. Plan: continue detox.
[2019-08-23] MEDS: THIAMINE HCL 100 MG TABLET (FP) PO SCH (22:13)
[2019-08-23] MEDS: MELATONIN 5 MG TABLETS PO PRN (22:14)
[2019-08-24] MEDS ORDERED: METHADONE HCL 10 MG TABLET (FOR DETOX USE ONLY) PO ONE (10:00)
[2019-08-24] MEDS: PRENATAL VITAMINS W/ FOLIC ACID TABLET (FP) PO SCH (10:50)
[2019-08-24] MEDS: NICOTINE 14 MG/24 HOURS TOPICAL PATCH TD SCH (10:51)
--- NOTE | 2019-08-24 14:28 | PN ---
BHS COWS - Scale Resting Pulse: 0= [place] 80 or Below Sweatin= Chills/Flushing Restless Observation: 0= Sits Still Pupil Size: 1= Pupils >than Normal Bone or Joint Aches: 1= Mild Discomfort Runny Nose/ Eye Tearin= Nasal Congestion GI Upset > 30mins: 1= Stomach Cramp Tremor Observation of Outstretched Hands: 1= Tremor [place], Not Seen Yawning Observation: 1= 1-2x During Session Anxiety or Irritability: 1=Feels Anxious/Irritable Goose Flesh Skin: 0=Smooth Skin COWS Score: 8 BHS Progress Note (SOAP) Subjective: 44 years old male admitted on 08/22/19 for opiate withdrawal sx management treating with methadone detox regiment feeling ok today mild abdominal cramp poor appetite ensure supplement Objective: 08/24/19 14:30 Vital Signs Temperature 98.2 F 08/24/19 13:37 Pulse Rate 76 08/24/19 13:37 Respiratory Rate 16 08/24/19 13:37 Blood Pressure 97/60 08/24/19 13:37 O2 Sat by Pulse Oximetry (%) Laboratory Last Values WBC 6.1 K/mm3 (4.0-10.0) 08/22/19 15:00 RBC 4.46 M/mm3 (4.00-5.60) 08/22/19 15:00 Hgb 12.4 GM/dL (11.7-16.9) 08/22/19 15:00 Hct 37.6 % (35.4-49) 08/22/19 15:00 MCV 84.2 fl (80-96) 08/22/19 15:00 MCH 27.9 pg (25.7-33.7) 08/22/19 15:00 MCHC 33.1 g/dl (32.0-35.9) 08/22/19 15:00 RDW 14.4 % (11.9-15.9) 08/22/19 15:00 Plt Count 208 K/MM3 (134-434) D 08/22/19 15:00 MPV 11.2 fl (7.5-11.1) H 08/22/19 15:00 Platelet Comment Giant platelets 08/22/19 15:00 Sodium 139 mmol/L (136-145) 08/22/19 15:00 Potassium 3.7 mmol/L (3.5-5.1) 08/22/19 15:00 Chloride 108 mmol/L (98-107) H 08/22/19 15:00 Carbon Dioxide 29 mmol/L (21-32) 08/22/19 15:00 Anion Gap 3 MMOL/L (8-16) L 08/22/19 15:00 BUN 18.1 mg/dL (7-18) H 08/22/19 15:00 Creatinine 0.9 mg/dL (0.55-1.3) 08/22/19 15:00 Est GFR (CKD-EPI)AfAm 118.30 08/22/19 15:00 Est GFR (CKD-EPI)NonAf 102.07 08/22/19 15:00 Random Glucose 102 mg/dL (74-106) 08/22/19 15:00 Calcium 8.6 mg/dL (8.5-10.1) 08/22/19 15:00 Total Bilirubin 0.6 mg/dL (0.2-1) 08/22/19 15:00 AST 28 U/L (15-37) 08/22/19 15:00 ALT 41 U/L (13-61) 08/22/19 15:00 Alkaline Phosphatase 117 U/L (45-117) 08/22/19 15:00 Total Protein 8.2 g/dl (6.4-8.2) 08/22/19 15:00 Albumin 3.4 g/dl (3.4-5.0) 08/22/19 15:00 RPR Titer Nonreactive (NONREACTIVE) 08/22/19 15:00 lab noted encourag oral fluid Assessment: 08/24/19 14:31 opiate withdrawal Plan: methadone regiment
[2019-08-24] MEDS: THIAMINE HCL 100 MG TABLET (FP) PO SCH (22:30)
[2019-08-24] MEDS: MELATONIN 5 MG TABLETS PO PRN (22:30)
[2019-08-25] MEDS ORDERED: METHADONE HCL 10 MG TABLET (FOR DETOX USE ONLY) ONE (09:08)
[2019-08-25] MEDS ORDERED: METHADONE HCL 5 MG TABLET (FOR DETOX USE ONLY) ONE (09:09)
[2019-08-25] MEDS ORDERED: METHADONE (DETOX) 10 MG, METHADONE (DETOX) 5 MG PO ONE (10:00)
[2019-08-25] MEDS: PRENATAL VITAMINS W/ FOLIC ACID TABLET (FP) PO SCH (10:03)
[2019-08-25] MEDS: NICOTINE 14 MG/24 HOURS TOPICAL PATCH TD SCH (10:04)
--- NOTE | 2019-08-25 13:43 | PN ---
BHS COWS - Scale Resting Pulse: 0= [place] 80 or Below Sweatin= Chills/Flushing Restless Observation: 0= Sits Still Pupil Size: 0= Normal to Room Light Bone or Joint Aches: 1= Mild Discomfort Runny Nose/ Eye Tearin= None GI Upset > 30mins: 1= Stomach Cramp Tremor Observation of Outstretched Hands: 1= Tremor [place], Not Seen Yawning Observation: 0= None Anxiety or Irritability: 1=Feels Anxious/Irritable Goose Flesh Skin: 0=Smooth Skin COWS Score: 5 BHS Progress Note (SOAP) Subjective: 44 years old male admitted on 08/22/19 for opiate withdrawal sx management treating with methadone detox regiment feeling ok today ate breakfast and lunch in day room social with peers strong recommend the patient to attend behavior and psychosocial therapies groups and meetings while in detox Objective: 08/25/19 13:55 Vital Signs Temperature 98.0 F 08/25/19 12:33 Pulse Rate 71 08/25/19 12:33 Respiratory Rate 20 08/25/19 12:33 Blood Pressure 91/65 08/25/19 12:33 O2 Sat by Pulse Oximetry (%) Laboratory Last Values WBC 6.1 K/mm3 (4.0-10.0) 08/22/19 15:00 RBC 4.46 M/mm3 (4.00-5.60) 08/22/19 15:00 Hgb 12.4 GM/dL (11.7-16.9) 08/22/19 15:00 Hct 37.6 % (35.4-49) 08/22/19 15:00 MCV 84.2 fl (80-96) 08/22/19 15:00 MCH 27.9 pg (25.7-33.7) 08/22/19 15:00 MCHC 33.1 g/dl (32.0-35.9) 08/22/19 15:00 RDW 14.4 % (11.9-15.9) 08/22/19 15:00 Plt Count 208 K/MM3 (134-434) D 08/22/19 15:00 MPV 11.2 fl (7.5-11.1) H 08/22/19 15:00 Platelet Comment Giant platelets 08/22/19 15:00 Sodium 139 mmol/L (136-145) 08/22/19 15:00 Potassium 3.7 mmol/L (3.5-5.1) 08/22/19 15:00 Chloride 108 mmol/L (98-107) H 08/22/19 15:00 Carbon Dioxide 29 mmol/L (21-32) 08/22/19 15:00 Anion Gap 3 MMOL/L (8-16) L 08/22/19 15:00 BUN 18.1 mg/dL (7-18) H 08/22/19 15:00 Creatinine 0.9 mg/dL (0.55-1.3) 08/22/19 15:00 Est GFR (CKD-EPI)AfAm 118.30 08/22/19 15:00 Est GFR (CKD-EPI)NonAf 102.07 08/22/19 15:00 Random Glucose 102 mg/dL (74-106) 08/22/19 15:00 Calcium 8.6 mg/dL (8.5-10.1) 08/22/19 15:00 Total Bilirubin 0.6 mg/dL (0.2-1) 08/22/19 15:00 AST 28 U/L (15-37) 08/22/19 15:00 ALT 41 U/L (13-61) 08/22/19 15:00 Alkaline Phosphatase 117 U/L (45-117) 08/22/19 15:00 Total Protein 8.2 g/dl (6.4-8.2) 08/22/19 15:00 Albumin 3.4 g/dl (3.4-5.0) 08/22/19 15:00 RPR Titer Nonreactive (NONREACTIVE) 08/22/19 15:00 lab noted 08/25/19 13:55low bp ambulating from room to day room to bathroom steady gait denies dizziness Assessment: 08/25/19 13:57 opiate withdrawal Plan: methadone regiment
[2019-08-25] MEDS: THIAMINE HCL 100 MG TABLET (FP) PO SCH (22:11)
[2019-08-25] MEDS: MELATONIN 5 MG TABLETS PO PRN (22:12)
[2019-08-26] MEDS ORDERED: METHADONE HCL 10 MG TABLET (FOR DETOX USE ONLY) PO ONE (10:00)
[2019-08-26] MEDS: PRENATAL VITAMINS W/ FOLIC ACID TABLET (FP) PO SCH (10:08)
[2019-08-26] MEDS: NICOTINE 14 MG/24 HOURS TOPICAL PATCH TD SCH (10:09)
--- NOTE | 2019-08-26 11:29 | PN ---
BHS COWS - Scale Resting Pulse: 1= [place] 81-100 Sweatin= Chills/Flushing Restless Observation: 3= Extraneous Movement Pupil Size: 0= Normal to Room Light Bone or Joint Aches: 1= Mild Discomfort Runny Nose/ Eye Tearin= Nasal Congestion GI Upset > 30mins: 2= Nausea/Diarrhea Tremor Observation of Outstretched Hands: 1= Tremor [place], Not Seen Yawning Observation: 1= 1-2x During Session Anxiety or Irritability: 1=Feels Anxious/Irritable Goose Flesh Skin: 0=Smooth Skin COWS Score: 12 BHS Progress Note (SOAP) Subjective: pt states he has diarrhea, o/w doing well with the detox O: Vital Signs - 24 hr 08/25/19 08/25/19 08/25/19 12:33 16:35 21:01 Temperature 98.0 F 98.0 F 99.1 F Pulse Rate 71 70 75 Respiratory 20 18 16 Rate Blood Pressure 91/65 101/56 L 102/63 08/26/19 08/26/19 08/26/19 00:30 03:30 06:09 Temperature 97.5 F L Pulse Rate 57 L Respiratory 18 18 18 Rate Blood Pressure 96/51 L 08/26/19 08/26/19 06:30 08:49 Temperature 98.5 F Pulse Rate 72 Respiratory 18 18 Rate Blood Pressure 96/57 L Laboratory Tests 08/22/19 08/22/19 08/22/19 15:00 15:00 15:00 WBC 6.1 RBC 4.46 Hgb 12.4 Hct 37.6 MCV 84.2 MCH 27.9 MCHC 33.1 RDW 14.4 Plt Count 208 D MPV 11.2 H Platelet Comment Giant platelets Sodium 139 Potassium 3.7 Chloride 108 H Carbon Dioxide 29 Anion Gap 3 L BUN 18.1 H Creatinine 0.9 Est GFR (CKD-EPI)AfAm 118.30 Est GFR (CKD-EPI)NonAf 102.07 Random Glucose 102 Calcium 8.6 Total Bilirubin 0.6 AST 28 ALT 41 Alkaline Phosphatase 117 Total Protein 8.2 Albumin 3.4 RPR Titer Nonreactive a/p: OUD- methadone detox protocol- pt to d/w counselor re long term care phlebotomist MAT- prefers rehab and suboxone prn meds for symptom management
[2019-08-26] MEDS: MELATONIN 5 MG TABLETS PO PRN (22:23)
[2019-08-26] MEDS: THIAMINE HCL 100 MG TABLET (FP) PO SCH (22:23)
[2019-08-26] MEDS: BISMUTH SUBSALICYLATE 262 MG/15 ML BTL PO PRN (22:25)
[2019-08-27] MEDS ORDERED: METHADONE HCL 5 MG TABLET (FOR DETOX USE ONLY) PO ONE (06:00)
[2019-08-27] MEDS: BISMUTH SUBSALICYLATE 262 MG/15 ML BTL PO PRN (06:12)
[2019-08-27] MEDS: NICOTINE 14 MG/24 HOURS TOPICAL PATCH TD SCH (10:19)
[2019-08-27] MEDS: PRENATAL VITAMINS W/ FOLIC ACID TABLET (FP) PO SCH (10:19)
--- NOTE | 2019-08-27 10:21 | DS ---
[facility] Detox Discharge Summary Admission Date: 08/22/19 Discharge Date: 08/27/19 - History Present History: Opioid Dependence Additional Comments: 44 years old male admitted on 08/22/19 for opiate withdrawal sx management treated with methadone detox regiment Mr Infante has completed the methadone regiment and tolerated well respiratory clear lungs bilaterally on auscultation abdomen soft no rebound tenderness skin warm and dry Pertinent Past History: time for discharge 44 minutes - Physical Exam Results Vital Signs: Vital Signs Temperature 97.5 F L 08/27/19 07:02 Pulse Rate 57 L 08/27/19 07:02 Respiratory Rate 18 08/27/19 07:02 Blood Pressure 82/47 L 08/27/19 07:02 O2 Sat by Pulse Oximetry (%) Pertinent Admission Physical Exam Findings: opiate withdrawal Laboratory Last Values WBC 6.1 K/mm3 (4.0-10.0) 08/22/19 15:00 RBC 4.46 M/mm3 (4.00-5.60) 08/22/19 15:00 Hgb 12.4 GM/dL (11.7-16.9) 08/22/19 15:00 Hct 37.6 % (35.4-49) 08/22/19 15:00 MCV 84.2 fl (80-96) 08/22/19 15:00 MCH 27.9 pg (25.7-33.7) 08/22/19 15:00 MCHC 33.1 g/dl (32.0-35.9) 08/22/19 15:00 RDW 14.4 % (11.9-15.9) 08/22/19 15:00 Plt Count 208 K/MM3 (134-434) D 08/22/19 15:00 MPV 11.2 fl (7.5-11.1) H 08/22/19 15:00 Platelet Comment Giant platelets 08/22/19 15:00 Sodium 139 mmol/L (136-145) 08/22/19 15:00 Potassium 3.7 mmol/L (3.5-5.1) 08/22/19 15:00 Chloride 108 mmol/L (98-107) H 08/22/19 15:00 Carbon Dioxide 29 mmol/L (21-32) 08/22/19 15:00 Anion Gap 3 MMOL/L (8-16) L 08/22/19 15:00 BUN 18.1 mg/dL (7-18) H 08/22/19 15:00 Creatinine 0.9 mg/dL (0.55-1.3) 08/22/19 15:00 Est GFR (CKD-EPI)AfAm 118.30 08/22/19 15:00 Est GFR (CKD-EPI)NonAf 102.07 08/22/19 15:00 Random Glucose 102 mg/dL (74-106) 08/22/19 15:00 Calcium 8.6 mg/dL (8.5-10.1) 08/22/19 15:00 Total Bilirubin 0.6 mg/dL (0.2-1) 08/22/19 15:00 AST 28 U/L (15-37) 08/22/19 15:00 ALT 41 U/L (13-61) 08/22/19 15:00 Alkaline Phosphatase 117 U/L (45-117) 08/22/19 15:00 Total Protein 8.2 g/dl (6.4-8.2) 08/22/19 15:00 Albumin 3.4 g/dl (3.4-5.0) 08/22/19 15:00 RPR Titer Nonreactive (NONREACTIVE) 08/22/19 15:00 lab noted - Treatment Hospital Course: Detox Protocol Followed, Detoxed Safely, Responded well, Discharged Condition Good, Rehab Referral Accepted Patient has Accepted [facility] - Medication Discharge Medications: Ambulatory Orders Naloxone HCl [Narcan] 4 mg NS ASDIR PRN #1 spray 08/27/19 - Diagnosis (1) Opioid dependence with withdrawal Current Visit: Yes Status: Acute (2) Nicotine dependence Current Visit: Yes Status: Acute Qualifiers: Nicotine product type: cigarettes Substance use status: in withdrawal Qualified Code(s): F17.213 - Nicotine dependence, cigarettes, with withdrawal (3) Asthma Current Visit: Yes Status: Chronic Qualifiers: Asthma severity: mild Asthma persistence: intermittent Asthma complication type: with status asthmaticus Qualified Code(s): J45.22 - Mild intermittent asthma with status asthmaticus (4) Hepatitis C Current Visit: Yes Status: Chronic Qualifiers: Viral hepatitis chronicity: chronic Hepatic coma status: without hepatic coma Qualified Code(s): B18.2 - Chronic viral hepatitis C (5) HIV (human immunodeficiency virus infection) Current Visit: Yes Status: Chronic Qualifiers: HIV symptom status: asymptomatic Qualified Code(s): Z21 - Asymptomatic human immunodeficiency virus [HIV] infection status (6) Substance induced mood disorder Current Visit: Yes Status: Suspected - AMA Did Patient Leave Against Medical Advice: No COWS (PN) - Opiate Withdrawal Resting Pulse: 0= IN 80 or Below Sweatin= No chills or Flushing Restless Observation: 0= Sits Still Pupil Size: 0= Normal to Room Light Bone or Joint Aches: 1= Mild Discomfort Runny Nose/ Eye Tearin= None GI Upset > 30mins: 0= None Tremor Observation of Outstretched Hands: 1= Tremor [employer], Not Seen Yawning Observation: 2= >3x During Session Anxiety or Irritability: 1=Feels Anxious/Irritable Goose Flesh Skin: 0=Smooth Skin COWS Score: 5
[2019-08-27 11:28] VITALS: BP 101/58; PULSE 64; TEMP 97.4
== END 2019-08-27 13:07 | disposition home or self-care (01) | DRG 773 ==
LOC: YASAS 14:02 → Y3N 15:24
PROVIDERS: ADMIT Allergy & Immunology; ATTEND Allergy & Immunology
PROC: HZ2ZZZZ Detoxification Services for Substance Abuse Treatment (ICD-10-PCS; principal; 2019-08-22)
DX: F11.23 Opioid dependence with withdrawal (principal); F17.213 Nicotine dependence, cigarettes, with withdrawal; F19.24 Other psychoactive substance dependence with psychoactive substance-induced mood disorder; F31.9 Bipolar disorder, unspecified; Z21 Asymptomatic human immunodeficiency virus [HIV] infection status; J45.22 Mild intermittent asthma with status asthmaticus; B18.2 Chronic viral hepatitis C; R60.0 Localized edema; Z86.711 Personal history of pulmonary embolism; Z86.718 Personal history of other venous thrombosis and embolism; Z95.828 Presence of other vascular implants and grafts; Z59.0 Homelessness
CPT/HCPCS: 36415; 80053; 85027; 86593

== ENCOUNTER 2022-01-02 18:04 | Inpatient (IN) | payer OTHER ==
[2022-01-02 20:56] VITALS: BMI 25.0
[2022-01-02] MEDS ORDERED: NICOTINE POLACRILEX 2 MG GUM BUC PRN (21:46)
[2022-01-02] MEDS ORDERED: BISMUTH SUBSALICYLATE 524 MG/30 ML PO PRN (21:46)
[2022-01-02] MEDS ORDERED: IBUPROFEN 400 MG TABLET (FP) PO PRN (21:46)
[2022-01-02] MEDS ORDERED: ACETAMINOPHEN 325 MG TABLET (FP) PO PRN ×2 (21:46)
[2022-01-02] MEDS ORDERED: MAGNESIUM CITRATE 300 ML BOTTLE PO PRN (21:46)
[2022-01-02] MEDS ORDERED: P-EPHED 60MG/TRIPROLIDI 2.5MG TABLET PO PRN (21:46)
[2022-01-02] MEDS ORDERED: IBUPROFEN 600 MG TABLET (FP) PO PRN (21:46)
[2022-01-02] MEDS ORDERED: MAGNESIUM HYDROX 2400MG/30ML ORAL SUSPENSION 30 ML CUP PO PRN (21:46)
[2022-01-02] MEDS ORDERED: MAG HYDROX/AL HYDROX/SIMETH 30 ML UNIT-DOSE CUP PO PRN (21:46)
[2022-01-02] MEDS ORDERED: LOPERAMIDE HCL 2 MG CAPSULE PO PRN (21:46)
[2022-01-02] MEDS ORDERED: BENZOCAINE/MENTHOL (CHLORASEPTIC ) LOZENGE MM PRN (21:46)
[2022-01-02] MEDS ORDERED: guaiFENesin 200 MG/10 ML 10 ML UNIT-DOSE CUPS PO PRN (21:46)
[2022-01-02] MEDS ORDERED: DICYCLOMINE HCL 10 MG CAPSULE PO PRN (21:46)
[2022-01-02] MEDS ORDERED: ONDANSETRON *ODT* 4 MG TABLET SL PRN (21:46)
[2022-01-03] MEDS: MELATONIN 5 MG TABLETS PO SCH (00:36)
[2022-01-03] MEDS: THIAMINE HCL 100 MG TABLET (FP) PO SCH (00:36)
[2022-01-03] MEDS: hydrOXYzine PAMOATE 25 MG CAPSULE (FP) PO PRN (00:37)
[2022-01-03 10:50] LABS: HEMATOCRIT 35.2 % (35.4-49); MCH 29.2 pg (25.7-33.7); MEAN CELL VOLUME 85.9 fl (80-96); MEAN PLT VOLUME 11.6 fl (7.5-11.1); PLATELET COUNT 143 10^3/uL (134-434); RBC 4.09 M/mm3 (4.00-5.60); RDW 13.8 % (11.9-15.9); WHITE BLOOD COUNT 4.5 K/mm3 (4.0-10.0)
[2022-01-03 10:57] LABS: ALBUMIN 3.1 g/dl (3.4-5.0); BLOOD UREA NITROGEN 21.3 mg/dL (7-18); CALCIUM 8.4 mg/dL (8.5-10.1)
[2022-01-03 11:00] LABS: CREATININE 0.7 mg/dL (0.55-1.3)
[2022-01-03 11:02] LABS: BILIRUBIN,TOTAL 0.5 mg/dL (0.2-1); TOT PROT 7.5 g/dl (6.4-8.2)
[2022-01-03] MEDS: PRENATAL VITAMINS W/ FOLIC ACID TABLET (FP) PO SCH (11:05)
[2022-01-04] MEDS: MELATONIN 5 MG TABLETS PO SCH ×2 (00:01→22:47)
[2022-01-04] MEDS: THIAMINE HCL 100 MG TABLET (FP) PO SCH ×2 (00:01→22:48)
[2022-01-04] MEDS ORDERED: cloNIDine HCL 0.1 MG TABLET PO PRN (08:02)
[2022-01-04] MEDS ORDERED: methaDONE HCL 10 MG TABLET (FOR DETOX USE ONLY) PO ONE (08:30)
[2022-01-04] MEDS: PRENATAL VITAMINS W/ FOLIC ACID TABLET (FP) PO SCH (10:34)
[2022-01-04] MEDS: METHOCARBAMOL 500 MG TABLET PO PRN (22:47)
[2022-01-04] MEDS: diazePAM 5 MG TABLET PO PRN (22:48)
[2022-01-05] MEDS: METHOCARBAMOL 500 MG TABLET PO PRN ×2 (05:52→22:37)
[2022-01-05] MEDS: diazePAM 5 MG TABLET PO PRN ×3 (05:52→22:38)
[2022-01-05] MEDS ORDERED: methaDONE HCL 10 MG TABLET (FOR DETOX USE ONLY) ONE (09:52)
[2022-01-05] MEDS: PRENATAL VITAMINS W/ FOLIC ACID TABLET (FP) PO SCH (10:21)
[2022-01-05] MEDS: MELATONIN 5 MG TABLETS PO SCH (22:37)
[2022-01-05] MEDS: THIAMINE HCL 100 MG TABLET (FP) PO SCH (22:37)
[2022-01-05] MEDS: hydrOXYzine PAMOATE 25 MG CAPSULE (FP) PO PRN (22:40)
[2022-01-06] MEDS: diazePAM 5 MG TABLET PO PRN ×3 (06:28→22:13)
[2022-01-06] MEDS: METHOCARBAMOL 500 MG TABLET PO PRN ×2 (06:28→17:38)
[2022-01-06] MEDS: hydrOXYzine PAMOATE 25 MG CAPSULE (FP) PO PRN (06:28)
[2022-01-06] MEDS ORDERED: methaDONE HCL 10 MG TABLET (FOR DETOX USE ONLY) PO ONE (10:00)
[2022-01-06] MEDS: PRENATAL VITAMINS W/ FOLIC ACID TABLET (FP) PO SCH (10:28)
[2022-01-06] MEDS: NICOTINE 10 MG CARTRIDGE (INHALER) IH PRN ×2 (18:24→22:13)
[2022-01-06] MEDS: THIAMINE HCL 100 MG TABLET (FP) PO SCH (22:13)
[2022-01-06] MEDS: MELATONIN 5 MG TABLETS PO SCH (22:13)
[2022-01-07] MEDS: diazePAM 5 MG TABLET PO PRN (06:24)
[2022-01-07] MEDS: METHOCARBAMOL 500 MG TABLET PO PRN ×2 (06:24→17:52)
[2022-01-07] MEDS: hydrOXYzine PAMOATE 25 MG CAPSULE (FP) PO PRN ×3 (06:24→22:22)
[2022-01-07] MEDS ORDERED: methaDONE HCL 10 MG TABLET (FOR DETOX USE ONLY) ONE (09:25)
[2022-01-07] MEDS: PRENATAL VITAMINS W/ FOLIC ACID TABLET (FP) PO SCH (10:12)
[2022-01-07] MEDS: NICOTINE 10 MG CARTRIDGE (INHALER) IH PRN (10:15)
[2022-01-07] MEDS: THIAMINE HCL 100 MG TABLET (FP) PO SCH (22:23)
[2022-01-07] MEDS: MELATONIN 5 MG TABLETS PO SCH (22:23)
[2022-01-08] MEDS ORDERED: methaDONE HCL 10 MG TABLET (FOR DETOX USE ONLY) PO ONE (10:00)
[2022-01-08] MEDS: PRENATAL VITAMINS W/ FOLIC ACID TABLET (FP) PO SCH (10:26)
[2022-01-08] MEDS: hydrOXYzine PAMOATE 25 MG CAPSULE (FP) PO PRN (10:26)
[2022-01-08] MEDS: METHOCARBAMOL 500 MG TABLET PO PRN (10:27)
[2022-01-08] MEDS: NICOTINE 10 MG CARTRIDGE (INHALER) IH PRN (18:36)
[2022-01-08] MEDS: MELATONIN 5 MG TABLETS PO SCH (22:24)
[2022-01-08] MEDS: THIAMINE HCL 100 MG TABLET (FP) PO SCH (22:24)
[2022-01-09 08:50] VITALS: BP 108/67; PULSE 82; TEMP 98.3
[2022-01-09] MEDS: PRENATAL VITAMINS W/ FOLIC ACID TABLET (FP) PO SCH (09:51)
== END 2022-01-09 11:41 | disposition other institution (70) | DRG 773 ==
LOC: YASAS 18:04 → Y3N 23:27
PROVIDERS: ADMIT Allergy & Immunology; ATTEND Surgery
PROC: HZ2ZZZZ Detoxification Services for Substance Abuse Treatment (ICD-10-PCS; principal; 2022-01-02)
DX: F11.23 Opioid dependence with withdrawal (principal); F14.20 Cocaine dependence, uncomplicated; F17.210 Nicotine dependence, cigarettes, uncomplicated; Z21 Asymptomatic human immunodeficiency virus [HIV] infection status; B18.2 Chronic viral hepatitis C; R79.89 Other specified abnormal findings of blood chemistry; R74.01 Elevation of levels of liver transaminase levels
CPT/HCPCS: 36415; 80053; 85027; 86780; C9803-CS; U0003; U0005

== ENCOUNTER 2023-04-02 22:11 | Inpatient (IN) | payer OTHER ==
[~2023-04-02 22:11] MED LIST: ACETAMINOPHEN 325 MG TABLET (FP) PO PRN; AMMONIUM LACTATE 12% LOTION 225 GM BOTTLE TP PRN; BENZOCAINE/MENTHOL (CHLORASEPTIC ) LOZENGE MM PRN; BENZONATATE 200 MG CAPSULE PO PRN; CYCLOBENZAPRINE HCL 10 MG TABLET (FP) PO PRN; IBUPROFEN 400 MG TABLET (FP) PO PRN; IBUPROFEN 600 MG TABLET (FP) PO PRN; LOPERAMIDE HCL 2 MG CAPSULE PO PRN; MAG HYDROX/AL HYDROX/SIMETH 30 ML UNIT-DOSE CUP PO PRN; MAGNESIUM HYDROX 2400MG/30ML ORAL SUSPENSION 30 ML CUP PO PRN; NALOXONE HCL (KLOXXADO) 8 MG SPRAY NS PRN; NALOXONE HCL 0.4 MG/ML VIAL IVPUSH PRN; NICOTINE 14 MG/24 HOURS TOPICAL PATCH TD PRN; NICOTINE POLACRILEX 2 MG GUM BUC PRN; POLYETHYLENE GLYCOL (HEALTHYLAX) 3350 17 GM PACKET PO PRN; guaiFENesin 600 MG TABLET.ER (FP) PO PRN
[2023-04-02] MEDS: hydrOXYzine PAMOATE 25 MG CAPSULE (FP) PO PRN (22:47)
[2023-04-02] MEDS: THIAMINE HCL 100 MG TABLET (FP) PO SCH (22:47)
[2023-04-02] MEDS: MELATONIN 5 MG TABLETS PO SCH (22:47)
[2023-04-03] MEDS: amLODIPine BESYLATE 10 MG TABLET (FP) PO SCH (10:08)
[2023-04-03] MEDS: PRENATAL VITAMINS W/ FOLIC ACID TABLET (FP) PO SCH (10:08)
[2023-04-03] MEDS: BUPRENORPHINE/NALOXONE 8 MG/2 MG FILM PACKET SL SCH (10:08)
[2023-04-03] MEDS ORDERED: PNEUMOC 20-VAL CONJ-DIP CRM/PF 0.5 ML SYRINGE IM ONE (12:30)
[2023-04-03] MEDS: THIAMINE HCL 100 MG TABLET (FP) PO SCH (21:08)
[2023-04-03] MEDS: MELATONIN 5 MG TABLETS PO SCH (21:08)
[2023-04-04] MEDS: amLODIPine BESYLATE 10 MG TABLET (FP) PO SCH (10:03)
[2023-04-04] MEDS: BUPRENORPHINE/NALOXONE 8 MG/2 MG FILM PACKET SL SCH (10:03)
[2023-04-04] MEDS: PRENATAL VITAMINS W/ FOLIC ACID TABLET (FP) PO SCH (10:03)
[2023-04-04] MEDS: MELATONIN 5 MG TABLETS PO SCH (21:02)
[2023-04-04] MEDS: THIAMINE HCL 100 MG TABLET (FP) PO SCH (21:03)
[2023-04-05] MEDS: PRENATAL VITAMINS W/ FOLIC ACID TABLET (FP) PO SCH (09:56)
[2023-04-05] MEDS: amLODIPine BESYLATE 10 MG TABLET (FP) PO SCH (09:57)
[2023-04-05] MEDS: BUPRENORPHINE/NALOXONE 8 MG/2 MG FILM PACKET SL SCH (09:57)
[2023-04-05] MEDS: MELATONIN 5 MG TABLETS PO SCH (21:31)
[2023-04-05] MEDS: THIAMINE HCL 100 MG TABLET (FP) PO SCH (21:31)
[2023-04-06] MEDS: BUPRENORPHINE/NALOXONE 8 MG/2 MG FILM PACKET SL SCH (09:54)
[2023-04-06] MEDS: amLODIPine BESYLATE 10 MG TABLET (FP) PO SCH (09:54)
[2023-04-06] MEDS: PRENATAL VITAMINS W/ FOLIC ACID TABLET (FP) PO SCH (09:54)
[2023-04-06] MEDS: MELATONIN 5 MG TABLETS PO SCH (21:21)
[2023-04-06] MEDS: THIAMINE HCL 100 MG TABLET (FP) PO SCH (21:22)
[2023-04-07] MEDS: PRENATAL VITAMINS W/ FOLIC ACID TABLET (FP) PO SCH (10:30)
[2023-04-07] MEDS: amLODIPine BESYLATE 10 MG TABLET (FP) PO SCH (10:30)
[2023-04-07] MEDS: BUPRENORPHINE/NALOXONE 8 MG/2 MG FILM PACKET SL SCH (10:30)
[2023-04-07] MEDS: MELATONIN 5 MG TABLETS PO SCH (21:35)
[2023-04-07] MEDS: THIAMINE HCL 100 MG TABLET (FP) PO SCH (21:35)
[2023-04-07] MEDS: hydrOXYzine PAMOATE 25 MG CAPSULE (FP) PO PRN (21:37)
[2023-04-08] MEDS: PRENATAL VITAMINS W/ FOLIC ACID TABLET (FP) PO SCH (10:02)
[2023-04-08] MEDS: BUPRENORPHINE/NALOXONE 8 MG/2 MG FILM PACKET SL SCH (10:03)
[2023-04-08] MEDS: amLODIPine BESYLATE 10 MG TABLET (FP) PO SCH (10:44)
[2023-04-08] MEDS: THIAMINE HCL 100 MG TABLET (FP) PO SCH (21:29)
[2023-04-08] MEDS: MELATONIN 5 MG TABLETS PO SCH (21:29)
[2023-04-09] MEDS: PRENATAL VITAMINS W/ FOLIC ACID TABLET (FP) PO SCH (10:18)
[2023-04-09] MEDS: BUPRENORPHINE/NALOXONE 8 MG/2 MG FILM PACKET SL SCH (10:19)
[2023-04-09] MEDS: MELATONIN 5 MG TABLETS PO SCH (21:29)
[2023-04-09] MEDS: THIAMINE HCL 100 MG TABLET (FP) PO SCH (21:29)
[2023-04-10] MEDS: PRENATAL VITAMINS W/ FOLIC ACID TABLET (FP) PO SCH (09:52)
[2023-04-10] MEDS: BUPRENORPHINE/NALOXONE 8 MG/2 MG FILM PACKET SL SCH (09:52)
[2023-04-10] MEDS: THIAMINE HCL 100 MG TABLET (FP) PO SCH (21:31)
[2023-04-10] MEDS: MELATONIN 5 MG TABLETS PO SCH (21:31)
[2023-04-10] MEDS: hydrOXYzine PAMOATE 25 MG CAPSULE (FP) PO PRN (21:32)
[2023-04-11] MEDS: PRENATAL VITAMINS W/ FOLIC ACID TABLET (FP) PO SCH (10:01)
[2023-04-11] MEDS: BUPRENORPHINE/NALOXONE 8 MG/2 MG FILM PACKET SL SCH (10:02)
[2023-04-11] MEDS: QUEtiapine FUMARATE 50 MG TABLET PO SCH (21:33)
[2023-04-11] MEDS: THIAMINE HCL 100 MG TABLET (FP) PO SCH (21:34)
[2023-04-12] MEDS: PRENATAL VITAMINS W/ FOLIC ACID TABLET (FP) PO SCH (09:58)
[2023-04-12] MEDS: BUPRENORPHINE/NALOXONE 8 MG/2 MG FILM PACKET SL SCH (09:59)
[2023-04-12] MEDS: THIAMINE HCL 100 MG TABLET (FP) PO SCH (21:36)
[2023-04-12] MEDS: QUEtiapine FUMARATE 50 MG TABLET PO SCH (21:36)
[2023-04-13] MEDS: BUPRENORPHINE/NALOXONE 8 MG/2 MG FILM PACKET SL SCH (10:15)
[2023-04-13] MEDS: PRENATAL VITAMINS W/ FOLIC ACID TABLET (FP) PO SCH (10:15)
[2023-04-13] MEDS: COLLOIDAL OATMEAL 1 BAR EACH TP PRN (16:24)
[2023-04-13] MEDS: QUEtiapine FUMARATE 50 MG TABLET PO SCH (21:23)
[2023-04-13] MEDS: THIAMINE HCL 100 MG TABLET (FP) PO SCH (21:23)
[2023-04-14] MEDS: BUPRENORPHINE/NALOXONE 8 MG/2 MG FILM PACKET SL SCH (10:21)
[2023-04-14] MEDS: PRENATAL VITAMINS W/ FOLIC ACID TABLET (FP) PO SCH (10:21)
[2023-04-14] MEDS: QUEtiapine FUMARATE 50 MG TABLET PO SCH (21:37)
[2023-04-14] MEDS: THIAMINE HCL 100 MG TABLET (FP) PO SCH (21:37)
[2023-04-15] MEDS: PRENATAL VITAMINS W/ FOLIC ACID TABLET (FP) PO SCH (10:19)
[2023-04-15] MEDS: BUPRENORPHINE/NALOXONE 8 MG/2 MG FILM PACKET SL SCH (10:20)
[2023-04-15] MEDS: hydrOXYzine PAMOATE 25 MG CAPSULE (FP) PO PRN (10:30)
[2023-04-15] MEDS: QUEtiapine FUMARATE 50 MG TABLET PO SCH (21:28)
[2023-04-15] MEDS: THIAMINE HCL 100 MG TABLET (FP) PO SCH (21:29)
[2023-04-16] MEDS: BUPRENORPHINE/NALOXONE 8 MG/2 MG FILM PACKET SL SCH (09:54)
[2023-04-16] MEDS: PRENATAL VITAMINS W/ FOLIC ACID TABLET (FP) PO SCH (09:55)
[2023-04-16] MEDS: QUEtiapine FUMARATE 50 MG TABLET PO SCH (21:32)
[2023-04-16] MEDS: THIAMINE HCL 100 MG TABLET (FP) PO SCH (21:32)
[2023-04-17] MEDS: BUPRENORPHINE/NALOXONE 8 MG/2 MG FILM PACKET SL SCH (09:54)
[2023-04-17] MEDS: PRENATAL VITAMINS W/ FOLIC ACID TABLET (FP) PO SCH (09:54)
[2023-04-17] MEDS: THIAMINE HCL 100 MG TABLET (FP) PO SCH (21:11)
[2023-04-17] MEDS: QUEtiapine FUMARATE 50 MG TABLET PO SCH (21:11)
[2023-04-18] MEDS: PRENATAL VITAMINS W/ FOLIC ACID TABLET (FP) PO SCH (09:41)
[2023-04-18] MEDS: BUPRENORPHINE/NALOXONE 8 MG/2 MG FILM PACKET SL SCH (09:43)
[2023-04-18] MEDS: THIAMINE HCL 100 MG TABLET (FP) PO SCH (21:21)
[2023-04-18] MEDS: QUEtiapine FUMARATE 50 MG TABLET PO SCH (21:22)
[2023-04-19] MEDS: PRENATAL VITAMINS W/ FOLIC ACID TABLET (FP) PO SCH (10:02)
[2023-04-19] MEDS: BUPRENORPHINE/NALOXONE 8 MG/2 MG FILM PACKET SL SCH (10:02)
[2023-04-19] MEDS: THIAMINE HCL 100 MG TABLET (FP) PO SCH (21:04)
[2023-04-19] MEDS: QUEtiapine FUMARATE 50 MG TABLET PO SCH (21:04)
[2023-04-20] MEDS: PRENATAL VITAMINS W/ FOLIC ACID TABLET (FP) PO SCH (09:47)
[2023-04-20] MEDS: BUPRENORPHINE/NALOXONE 8 MG/2 MG FILM PACKET SL SCH (09:48)
[2023-04-20] MEDS: COLLOIDAL OATMEAL 1 BAR EACH TP PRN (11:01)
[2023-04-20] MEDS: THIAMINE HCL 100 MG TABLET (FP) PO SCH (21:31)
[2023-04-20] MEDS: QUEtiapine FUMARATE 50 MG TABLET PO SCH (21:31)
[2023-04-21] MEDS: PRENATAL VITAMINS W/ FOLIC ACID TABLET (FP) PO SCH (10:08)
[2023-04-21] MEDS: BUPRENORPHINE/NALOXONE 8 MG/2 MG FILM PACKET SL SCH (10:09)
[2023-04-21] MEDS: LIDOCAINE 5% TOPICAL PATCH TP SCH (12:26)
[2023-04-21] MEDS: QUEtiapine FUMARATE 50 MG TABLET PO SCH (22:32)
[2023-04-21] MEDS: THIAMINE HCL 100 MG TABLET (FP) PO SCH (22:32)
[2023-04-21] MEDS: LIDOCAINE PATCH REMOVAL MC SCH (22:34)
[2023-04-22 07:07] VITALS: RESP 16; TEMP 97.3
[2023-04-22] MEDS: PRENATAL VITAMINS W/ FOLIC ACID TABLET (FP) PO SCH (09:52)
[2023-04-22] MEDS: BUPRENORPHINE/NALOXONE 8 MG/2 MG FILM PACKET SL SCH (09:52)
[2023-04-22] MEDS: LIDOCAINE 5% TOPICAL PATCH TP SCH (09:53)
[2023-04-22] MEDS: QUEtiapine FUMARATE 50 MG TABLET PO SCH (21:38)
[2023-04-22] MEDS: THIAMINE HCL 100 MG TABLET (FP) PO SCH (21:39)
[2023-04-22] MEDS: LIDOCAINE PATCH REMOVAL MC SCH (21:39)
[2023-04-23] MEDS: BUPRENORPHINE/NALOXONE 8 MG/2 MG FILM PACKET SL SCH (10:02)
[2023-04-23] MEDS: PRENATAL VITAMINS W/ FOLIC ACID TABLET (FP) PO SCH (10:02)
[2023-04-23] MEDS: LIDOCAINE 5% TOPICAL PATCH TP SCH (10:03)
[2023-04-23 11:24] VITALS: BP 100/58; PULSE 84
== END 2023-04-23 12:16 | disposition home or self-care (01) | DRG 772 ==
LOC: YASAS 22:11 → Y5N 22:13
PROVIDERS: ADMIT Allergy & Immunology; ATTEND Psychiatry & Neurology Pain Medicine
PROC: HZ42ZZZ Group Counseling for Substance Abuse Treatment, Cognitive-Behavioral (ICD-10-PCS; principal; 2023-04-02)
DX: F10.20 Alcohol dependence, uncomplicated (principal); F14.20 Cocaine dependence, uncomplicated; F17.210 Nicotine dependence, cigarettes, uncomplicated; Z21 Asymptomatic human immunodeficiency virus [HIV] infection status; B18.2 Chronic viral hepatitis C; M54.50 Low back pain, unspecified; Z59.00 Homelessness unspecified
CPT/HCPCS: 36415; 86803; 87522; 90677